=== PATIENT | male | born 1965 | race Caucasian/White ===

== ENCOUNTER 2021-04-09 06:30 | Emergency (ER) | payer OTHER, MEDICARE ==
[~2021-04-09] VITALS: Ht 177.8 cm; Wt 47.6 kg
[2021-04-09] MEDS ORDERED: MORPHINE 11 MG/2 ML IV (06:59)
[2021-04-09] MEDS ORDERED: PREGABALIN100 MG PO (07:01)
[2021-04-09] MEDS ORDERED: LORAZEPAM1 MG PO (07:01)
== END 2021-04-09 11:49 | disposition home or self-care (01) ==
LOC: ED 06:30
DX: K59.00 Constipation, unspecified (principal); L89.159 Pressure ulcer of sacral region, unspecified stage; E86.0 Dehydration; R21 Rash and other nonspecific skin eruption; Z79.899 Other long term (current) drug therapy; Z79.891 Long term (current) use of opiate analgesic
CPT/HCPCS: 51798; 74018; 80048; 80500; 81001; 85025; 99283-25; J7030